=== PATIENT | male | born 1940 | race Caucasian/White ===

== ENCOUNTER 2017-04-20 07:11 | Inpatient (IN) | payer MEDICARE, OTHER ==
[~2017-04-20] VITALS: Ht 177.8 cm; Wt 108.9 kg
--- NOTE | ~2017-04-20 | PR ---
[place], [place] PROGRESS NOTE NAME: LANDON ECHOLS [facility] #: [id number] UNIT #: [id number] ROOM: 402 DOCTOR: YANETH JOHNS DPM BIRTHDATE: [birth year] DOS: 04/22/2017 SUBJECTIVE: This patient is seen for followup of ulcerations, right fourth and left second toes. States his feet are doing well. Really has no complaints at this time regarding his feet. OBJECTIVE: Neurovascular status is unchanged. Decreased pedal pulses are noted. Skin temperature is warm. Contracted digits noted. Previous amputation, right second toe is noted. Distal right fourth and distal left second toes are dry with minimal ulceration. No erythema or edema. No drainage or malodor, no signs of infection. ASSESSMENT: Diabetic ulcerations, right fourth and left second toe, stable and noninfected. PLAN, EVALUATION AND MANAGEMENT: Continue with current orders. Radiographs of the left ankle were negative. Clinically, no edema or erythema about the left ankle. No pain. We will follow up the patient upon discharge, possibly see him next week if he is still in the hospital, but right now his feet are stable. YANETH JOHNS DPM CM:PNWILIAM [id number] YANETH JOHNS DPM 04/25/17 1308 interface
--- NOTE | ~2017-04-20 | PR ---
[place], [place] PROGRESS NOTE NAME: LANDON ECHOLS [facility] #: [id number] UNIT #: [id number] ROOM: 402 DOCTOR: YANETH JOHNS DPM BIRTHDATE: [birth year] DOS: 04/25/2017 SUBJECTIVE: This patient is seen for followup of wounds on both feet and the toes. He states he is feeling well, really has no complaints in regards to his feet at this time. He says he gets a little sore at times, but overall doing well. He states he is going to go to a rehab center upon discharge. OBJECTIVE: Neurovascular status is unchanged, previous amputation of his right foot. The wounds over the digits on both feet are clean and dry, are doing very well and essentially healing without complication at this time. There is no drainage or malodor, no edema or erythema. No signs of any infection at this time. ASSESSMENT AND PLAN: Diabetic ulcer, bilateral feet, doing well. PLAN: Evaluation and management, leave the areas open to air. They are doing very well at this time. He is okay to discharge from Podiatry standpoint. He could follow up as an outpatient with Dr. Wells. He is doing well with regards to feet at this time. YANETH JOHNS DPM CM:PNTRANS [id number] YANETH JOHNS DPM 04/25/17 1146 interface
--- NOTE | ~2017-04-20 | CON ---
[place], [place] REPORT OF CONSULTATION NAME: LANDON ECHOLS UNIT #: [id number] ROOM: 402 DOCTOR: LISA KERNSFELECIA Clarice BIRTHDATE: [birth year] DOS: 04/21/2017 SUBJECTIVE: The patient is a 77-year-old male with chief complaint of ulcerations to the fourth right and second left toes. The patient has been treated by my partner, Dr. Wells, and was most recently seen last week. PAST MEDICAL HISTORY: First degree AV block, coronary artery disease, essential hypertension, generalized anxiety disorder, GERD, hypercholesterolemia, neuropathy, osteoarthritis, rheumatoid arthritis, type 2 diabetes with hyperglycemia with long-term current use of insulin, vitamin B12 deficiency. PAST SURGICAL HISTORY: Amputation of second right toe, history of lumbar surgery, bilateral hip replacement, history of CABG, history of cardiac catheterization, history of cholecystectomy, history of heart artery stent x 3, history of shoulder surgery. SOCIAL HISTORY: Former smoker. Denies illicit drug use or alcohol. FAMILY HISTORY: Father at age 60 of stroke. Mother at age 93, old age. ALLERGIES: No known allergies. PHYSICAL EXAMINATION: LOWER EXTREMITY EXAMINATION: Pedal pulses diminished bilateral. Epicritic sensation decreased bilateral. Previously amputated second right toe noted. There are partial thickness ulcerations noted to the plantar distal aspect of the fourth right and second left toes. No signs of infection, no signs of erythema to the digits. Ulceration of fourth right toe measured approximately 0.6 cm in length x 0.4 cm in width. Ulceration of second left toe measured approximately 0.5 cm in diameter. There is also mild erythema and mild edema to the left ankle with mild increase in temperature, no acute abscess noted. Changes consistent with possible early Charcot arthropathy. ASSESSMENT: Diabetic with diabetic ulcerations, toes 4 right, 2 left; diabetic neuropathy, possible Charcot arthropathy with edema, erythema to the left ankle. PLAN: Evaluation and management. Ordered Bactroban with Adaptic and gauze dressings daily to ulcerative sites. Also ordered radiographs three views of the left ankle to rule out underlying osseous pathology including possible early Charcot arthropathy. Discussed the case with Dr. Dwyer who will see the patient again tomorrow. [place], [place] REPORT OF CONSULTATION NAME: LANDON ECHOLS UNIT #: [id number] ROOM: 402 DOCTOR: FELECIA GONZALEZ DPM BIRTHDATE: [birth year] FELECIA GONZALEZ DPM CM:CONSTR:REPORT OF CONSULTATION 1324 04/21/17 2157 interface
[~2017-04-20 07:11] MED LIST: ARAVA20 MG PO; ASPIR-LOW81 MG PO; ATIVAN1 MG PO; CEFTIN250 MG PO; COLACE100 MG PO; FOLIC ACID1 MG PO; GLUCOPHAGE500 MG PO; GLUCOVANCE 5 MG1 TAB PO; HYDROCODONE BIT1 T11 PO; JANUVIA100 MG PO; LANTUS SOL100 UNIT/1 SQ; LEVOFLOXACIN500 MG PO; LISINOPRIL10 MG PO; LISINOPRIL2.5 MG PO; LOPRESSOR25 MG PO; LOVAZA1 GM PO; METHOTREXATE2.5 M1 PO; METHOTREXATE2.5 MG PO; NEURONTIN800 MG PO; NEXIUM40 MG PO; PRILOSEC20 MG PO; SIMVASTATIN40 MG PO; STOOL SOFTNER PO; VALIUM10 MG PO; VICODIN 5/500 505 MG PO
[2017-04-20 07:12] VITALS: BP 144/64
[2017-04-20 07:55] LABS: BASO # 0.1 10*3/uL (0.0-0.1); BASO % 0.8 % (0.0-1.0); EOS # 0.1 10*3/uL (0.0-0.4); HEMATOCRIT 41.5 % (42.0-52.0); HEMOGLOBIN 13.8 g/dl (14.0-18.0); LYMPH # 1.4 10*3/uL (1.3-4.4); LYMPH % 15.7 % (27.0-41.0); MEAN CELL VOLUME 89.2 fl (80.0-94.0); MEAN CORPUSCULAR HGB 29.7 pg (27.0-31.0); MEAN CORPUSCULAR HGB CONC 33.3 g/dl (33.0-37.0); MEAN PLATELET VOLUME 9.6 fl (9.6-12.3); MONO # 0.8 10*3/uL (0.1-1.0); MONO % 8.7 % (3.0-9.0); NEUT # 6.5 10*3/uL (2.3-7.9); NEUT % 71.1 % (47.0-73.0); NUCLEATED RED BLOOD CELL 0.4 % (0.0-0.0); PLATELET COUNT AUTOMATED 386 10*3/uL (130-400); RED BLOOD COUNT 4.65 10*6/uL (4.50-5.90); RED CELL DISTRI WIDTH 14.3 % (0-14.5); WHITE BLOOD COUNT 9.1 10*3/uL (4.8-10.8)
[2017-04-20 08:11] LABS: ALKALINE PHOSPHATASE 190 U/L (45-117); BUN 13 mg/dl (7-24); CHLORIDE 102 mmol/L (98-107); CPK 38 U/L (39-308); CREATININE 0.67 mg/dL (0.70-1.30); POTASSIUM 4.1 mmol/L (3.5-5.1); SGOT/AST 25 IU/L (3-35); SGPT/ALT 28 U/L (12-78); SODIUM 136 mmol/L (136-145); TOTAL PROTEIN 6.5 gm/dL (6.4-8.2)
[2017-04-20 08:14] LABS: ALBUMIN 2.4 gm/dl (3.1-4.5); TROPONIN I 0.024 ng/ml (<0.045)
[2017-04-20 08:22] LABS: ACT PARTIAL THROMBO TIME 26.6 SECONDS (19.5-32.1)
[2017-04-20 09:02] LABS: BILIRUBIN NEGATIVE (NEGATIVE); BLOOD NEGATIVE (NEGATIVE); CLARITY CLEAR (CLEAR); COLOR YELLOW (YELLOW); GLUCOSE NEGATIVE (NEGATIVE); KETONE TRACE (NEGATIVE); LEUKO ESTERASE NEGATIVE (NEGATIVE); NITRITE NEGATIVE (NEGATIVE)
[2017-04-20 09:19] LABS: FINE GRANULAR CAST 0-2
[2017-04-20 09:30] VITALS: BP 100/53
[2017-04-20] MEDS ORDERED: VITAMIN D31000 UNIT PO (10:15)
[2017-04-20 10:40] VITALS: BP 159/91
[2017-04-20 12:00] VITALS: BP 116/81
[2017-04-20 16:00] VITALS: BP 147/77
[2017-04-20 20:00] VITALS: BP 103/60
[2017-04-21] VITALS: BP 152/67
[2017-04-21 07:39] LABS: HEMATOCRIT 41.2 % (42.0-52.0); HEMOGLOBIN 13.4 g/dl (14.0-18.0); MEAN CELL VOLUME 88.8 fl (80.0-94.0); MEAN CORPUSCULAR HGB 28.9 pg (27.0-31.0); MEAN CORPUSCULAR HGB CONC 32.5 g/dl (33.0-37.0); MEAN PLATELET VOLUME 9.6 fl (9.6-12.3); NUCLEATED RED BLOOD CELL 0.3 % (0.0-0.0); PLATELET COUNT AUTOMATED 377 10*3/uL (130-400); RED BLOOD COUNT 4.64 10*6/uL (4.50-5.90); RED CELL DISTRI WIDTH 14.5 % (0-14.5); WHITE BLOOD COUNT 9.9 10*3/uL (4.8-10.8)
[2017-04-21 08:00] VITALS: BP 109/73
[2017-04-21 08:12] LABS: ALBUMIN 2.4 gm/dl (3.1-4.5); ALKALINE PHOSPHATASE 146 U/L (45-117); BUN 18 mg/dl (7-24); CHLORIDE 100 mmol/L (98-107); CHOLESTEROL 131 mg/dL (<200); CREATININE 0.79 mg/dL (0.70-1.30); HDL CHOLESTEROL 29 mg/dl (40-60); LDL CHOLESTEROL 75 mg/dL (9-159); PHOSPHOROUS 2.9 mg/dL (2.5-4.9); POTASSIUM 3.9 mmol/L (3.5-5.1); SGOT/AST 11 IU/L (3-35); SGPT/ALT 19 U/L (12-78); SODIUM 136 mmol/L (136-145); TOTAL PROTEIN 6.6 gm/dL (6.4-8.2); TRIGLYCERIDES 137 mg/dl (<150); VLDL CHOLESTEROL 27 mg/dL (6-40)
[2017-04-21 08:13] LABS: PLATELET SUFFICIENCY NORMAL (NORMAL); POLYCHROMASIA SLIGHT; TOTAL CELLS COUNTED 100 #CELLS
[2017-04-21 08:33] LABS: VITAMIN D, 25-HYDROXY 14.2 ng/mL (30-100)
[2017-04-21 12:00] VITALS: BP 115/48
[2017-04-21 16:00] VITALS: BP 116/50
[2017-04-21 19:59] VITALS: BP 110/68
[2017-04-22] VITALS: BP 146/75
[2017-04-22 08:00] VITALS: BP 158/72
[2017-04-22 12:00] VITALS: BP 150/74
[2017-04-22 16:00] VITALS: BP 124/66
[2017-04-22 20:00] VITALS: BP 148/79
[2017-04-23] VITALS: BP 141/81; BP 145/58
[2017-04-23 08:00] VITALS: BP 160/78
[2017-04-23 12:00] VITALS: BP 117/52
[2017-04-23 16:00] VITALS: BP 129/79
[2017-04-23 20:00] VITALS: BP 136/66
[2017-04-24] VITALS: BP 148/58
[2017-04-24 07:20] LABS: HEMOGLOBIN 12.8 g/dl (14.0-18.0); MEAN CELL VOLUME 88.8 fl (80.0-94.0); MEAN CORPUSCULAR HGB 29.2 pg (27.0-31.0); MEAN CORPUSCULAR HGB CONC 32.8 g/dl (33.0-37.0); MEAN PLATELET VOLUME 9.9 fl (9.6-12.3); PLATELET COUNT AUTOMATED 355 10*3/uL (130-400); RED BLOOD COUNT 4.39 10*6/uL (4.50-5.90); RED CELL DISTRI WIDTH 14.1 % (0-14.5); WHITE BLOOD COUNT 10.6 10*3/uL (4.8-10.8)
[2017-04-24 07:54] LABS: CREATININE 0.76 mg/dL (0.70-1.30)
[2017-04-24 08:00] VITALS: BP 164/75
[2017-04-24 08:27] LABS: ATYPICAL LYMPHS 1 % (0-0); TOTAL CELLS COUNTED 100 #CELLS
[2017-04-24 08:28] LABS: PLATELET SUFFICIENCY NORMAL (NORMAL)
[2017-04-24 12:00] VITALS: BP 164/71
[2017-04-24 16:00] VITALS: BP 137/70
[2017-04-24 20:00] VITALS: BP 145/96
[2017-04-25] VITALS: BP 145/79
[2017-04-25 08:00] VITALS: BP 157/76
[2017-04-25 12:00] VITALS: BP 146/79
[2017-04-25 16:00] VITALS: BP 141/64
[2017-04-25] MEDS ORDERED: PREDNISONE10 MG PO (17:37)
== END 2017-04-25 18:32 | disposition home health service (06) | DRG 545 ==
LOC: ED 07:11 → 4E 08:42 → EDHOLD 08:42 → 4E 08:54
PROVIDERS: Emergency Medicine; Internal Medicine; Internal Medicine Hospice and Palliative Medicine
DX: M06.9 Rheumatoid arthritis, unspecified (principal); E43 Unspecified severe protein-calorie malnutrition; E11.42 Type 2 diabetes mellitus with diabetic polyneuropathy; E11.621 Type 2 diabetes mellitus with foot ulcer; I25.10 Atherosclerotic heart disease of native coronary artery without angina pectoris; B35.1 Tinea unguium; I50.32 Chronic diastolic (congestive) heart failure; E11.65 Type 2 diabetes mellitus with hyperglycemia; E78.00 Pure hypercholesterolemia, unspecified; M15.9 Polyosteoarthritis, unspecified; I44.0 Atrioventricular block, first degree; L97.519 Non-pressure chronic ulcer of other part of right foot with unspecified severity; L97.529 Non-pressure chronic ulcer of other part of left foot with unspecified severity; R61 Generalized hyperhidrosis; E55.9 Vitamin D deficiency, unspecified; F41.1 Generalized anxiety disorder; K21.9 Gastro-esophageal reflux disease without esophagitis; I11.0 Hypertensive heart disease with heart failure; R26.2 Difficulty in walking, not elsewhere classified; Z96.643 Presence of artificial hip joint, bilateral; Z87.891 Personal history of nicotine dependence; Z95.1 Presence of aortocoronary bypass graft; Z79.899 Other long term (current) drug therapy; Z89.421 Acquired absence of other right toe(s); Z95.5 Presence of coronary angioplasty implant and graft; Z90.49 Acquired absence of other specified parts of digestive tract; Z68.34 Body mass index [BMI] 34.0-34.9, adult; Z79.4 Long term (current) use of insulin; Z79.82 Long term (current) use of aspirin; Z79.84 Long term (current) use of oral hypoglycemic drugs; Z83.3 Family history of diabetes mellitus; Z82.61 Family history of arthritis; Z82.3 Family history of stroke; Z80.0 Family history of malignant neoplasm of digestive organs